=== PATIENT | female | born 1990 | race Caucasian/White ===

== ENCOUNTER 2023-06-24 16:03 | Emergency (ER) | payer OTHER ==
[~2023-06-24] VITALS: Ht 165.1 cm; Wt 55.0 kg
[2023-06-24 16:12] VITALS: BP 120/71; PULSE 64; RESP 16; TEMP 98.3; O2SAT 100
[2023-06-24 17:45] LABS: HEMATOCRIT. 35.7 % (36.0-48.0); HEMOGLOBIN. 11.7 g/dL (12.0-16.0); MEAN CORPUSCULAR HEMOGLOBIN 27.8 pg (28.0-32.0); MEAN CORPUSCULAR HGB CONC 32.9 g/dL (31.0-37.0); MEAN CORPUSCULAR VOLUME 84.5 fL (81.0-99.0); MEAN PLATELET VOLUME 8.4 fl (7.4-10.4); PLATELET 393 x1000/uL (130-400); RED BLOOD CELL COUNT 4.22 mill/uL (4.2-5.4); RED CELL DISTRIBUTION WIDTH 16.9 % (11.6-14.6); WHITE BLOOD COUNT 16.4 x1000/uL (4.5-11.0)
[2023-06-24 17:48] LABS: DIFFERENTIAL COMMENT 1
[2023-06-24 18:02] LABS: ALANINE AMINOTRANSFERASE 16 IU/L (10-49); ALBUMIN 3.9 g/dL (3.2-4.8); ASPARTATE AMINOTRANSFERASE 14 IU/L (<34); BILIRUBIN TOTAL 0.3 mg/dL (0.1-1.0); CALCIUM 8.6 mg/dL (8.7-10.4); CARBON DIOXIDE 21 mEq/L (21-32); CHLORIDE 104 mEq/L (98-107); CREATININE 0.4 mg/dL (0.6-1.0); GLUCOSE 132 mg/dL (70-105); PROTEIN TOTAL 7.1 g/dL (6.0-8.3); SODIUM 134 mEq/L (136-145); THYROID STIMULATING HORMONE < 0.10 uIU/mL (0.55-4.78); UREA NITROGEN BLOOD 10 mg/dL (9-23)
[2023-06-24 18:04] LABS: PLATELET ESTIMATE NORMAL
[2023-06-24 18:10] LABS: ETHANOL BLOOD < 10 mg/dL (<10)
[2023-06-24] MEDS ORDERED: POTASSIUM CHLORIDE 20MEQ TABLET SR PO NR (18:15)
== END 2023-06-24 20:41 ==
LOC: ER 16:03
DX: F94.0 Selective mutism (principal); E87.6 Hypokalemia; D72.829 Elevated white blood cell count, unspecified
CPT/HCPCS: 36415; 80053; 80320; 82962; 84443; 85025; 99283; G0480